=== PATIENT | female | born 1995 | race Caucasian/White ===

== ENCOUNTER 2016-11-24 13:04 | Emergency (ER) | payer OTHER ==
--- NOTE | 2016-11-24 14:39 | ED ---
General Adult HPI - General Chief complaint: Abdominal Pain Stated complaint: Abd Pain Source: patient Mode of arrival: wheelchair Limitations: no limitations - History of Present Illness Initial comments: 21-year-old female presented for evaluation of rectal pain. She states that she has had a hemorrhoid for the last couple years that is reducible and has not been causing her much discomfort during this time. Yesterday she suddenly developed pain in the area and when she reached around to feel the hemorrhoid it felt hard and firm. Upon observation she noted a dark purplish discoloration to it. She tried [id number] creams as well as Tucks pads without improvement. She denies any bleeding or foul discharge. Denies any generalized symptoms of fevers, chills, nausea, vomiting. - Related Data Home Medications Medication Instructions Recorded Confirmed Accutane 40mg 40 mg PO DAILY 11/24/16 11/24/16 Ibuprofen [Motrin] 800 mg PO Q6HR PRN 11/24/16 11/24/16 Previous Rx's Medication Instructions Recorded Acetaminophen-Codeine 300-30mg 2 tab PO Q6H PRN #14 tablet 11/24/16 [Tylenol #3] Ibuprofen [Motrin] 400 mg PO Q6HR PRN #21 tab 11/24/16 Allergies Allergy/AdvReac Type Severity Reaction Status Date / Time No Known Allergies Allergy Verified 11/24/16 13:44 Review of Systems ROS Statement: Those systems with pertinent positive or pertinent negative responses have been documented in the HPI. ROS Other: All systems not noted in ROS Statement are negative. Constitutional: Denies: fever, chills Eyes: Denies: eye pain, vision change ENT: Denies: ear pain, throat pain Respiratory: Denies: cough, dyspnea Cardiovascular: Denies: chest pain, palpitations Endocrine: Denies: fatigue, polydipsia Gastrointestinal: Reports: other (hemorrhoid pain; hardened and discolored). Denies: abdominal pain, nausea, vomiting Genitourinary: Denies: urgency, dysuria Musculoskeletal: Denies: back pain, arthralgia Skin: Denies: rash, lesions Neurological: Denies: headache, weakness Past Medical History Past Medical History: No Reported History Additional Past Medical History / Comment(s): chronic constipation History of Any Multi-Drug Resistant Organisms: None Reported Past Surgical History: No Surgical Hx Reported Past Psychological History: No Psychological Hx Reported Smoking Status: Current every day smoker Past Alcohol Use History: Rare Past Drug Use History: None Reported General Exam Limitations: no limitations General appearance: alert, in no apparent distress Head exam: Present: atraumatic, normocephalic, normal inspection Eye exam: Present: normal appearance, PERRL, EOMI. Absent: scleral icterus, conjunctival injection, periorbital swelling ENT exam: Present: normal exam, mucous membranes moist Neck exam: Present: normal inspection. Absent: tenderness, meningismus, lymphadenopathy Respiratory exam: Present: normal lung sounds bilaterally. Absent: respiratory distress, wheezes, rales, rhonchi, stridor Cardiovascular Exam: Present: regular rate, normal rhythm, normal heart sounds. Absent: systolic murmur, diastolic murmur, rubs, gallop, clicks GI/Abdominal exam: Present: soft, normal bowel sounds. Absent: distended, tenderness, guarding, rebound, rigid Rectal exam: Present: hemorrhoids (extrenal, thrombosed, overlying purplish discoloration) Extremities exam: Present: normal inspection, full ROM, normal capillary refill. Absent: tenderness, pedal edema, joint swelling, calf tenderness Back exam: Present: normal inspection Neurological exam: Present: alert, oriented X3, CN II-XII intact Psychiatric exam: Present: normal affect, normal mood Skin exam: Present: warm, dry, intact, normal color. Absent: rash Course Vital Signs 11/24/16 11/24/16 13:25 16:11 Temperature 99.4 F 99.3 F Pulse Rate 90 76 Respiratory 18 20 Rate Blood Pressure 116/58 112/56 O2 Sat by Pulse 98 99 Oximetry Procedures - Incision & Drainage Consent Obtained: verbal consent, written consent Time Out Performed?: Yes Indication: Thrombosed external hemorrhoid Size (cm): 1 Anesthetic Used: lidocaine 2%, with epi Amount (mLs): 5 I&D Cleaning Method: Betadine Sterile Field Used?: Yes Scalpel Used: #11 Needle Aspiration Performed?: No Irrigation Performed?: No I&D Drainage Obtained: Other (clot) Culture Obtained?: No Complications: bleeding Patient Tolerated Procedure: well Medical Decision Making - Medical Decision Making 21-year-old female presented for evaluation of thrombosed external hemorrhoid. On physical examination it is swollen and tender to palpation and firm. Viscous Lidocaine placed on [address] over the external hemorrhoid and left there for 15 minutes. It was removed and excision of the thrombosed hemorrhoid performed without complications. A Tucks pad was placed over the hemorrhoid and the Dr. Henriquez was called and agreed to see the pt on friday. The patient was informed of this and agreed to make an appointment. She was given return instructions and pain control. The patient acknowledged an understanding of this information and agreed with this plan of care. Disposition Clinical Impression: Thrombosed external hemorrhoid Disposition: HOME SELF-CARE Condition: Stable Instructions: Thrombosed Hemorrhoid (ED) Additional Instructions: The general surgeon Dr. Henriquez has agreed to see you this Friday for follow- up. Please call his office tomorrow morning at the number provided in your discharge paperwork and make this appointment. If he should have any continued bleeding, intractable pain, discolored or smelly discharge from the excision site, or other concerning symptoms please return to this ED immediately if unless you are able to see your PCP first. Prescriptions: Acetaminophen-Codeine 300-30mg [Tylenol #3] 2 tab PO Q6H PRN #14 tablet PRN Reason: Pain Ibuprofen [Motrin] 400 mg PO Q6HR PRN #21 tab PRN Reason: Pain Referrals: Nonstaff,Physician [REFERRING] - 1-2 days Prince Henriquez MD [STAFF PHYSICIAN] - 1-2 days Time of Disposition: 15:45
[2016-11-24] MEDS ORDERED: LIDOCAINE VISCOUS 2% 15 ML CUP MUCOUS MEM ONE (14:45)
[2016-11-24] MEDS ORDERED: WITCH HAZEL 1 EACH MED..PAD TOPICAL STA (14:50)
[2016-11-24 16:13] VITALS: BP 112/56; PULSE 76; RESP 20; TEMP 99.3
[2016-11-25] MEDS ORDERED: WITCH HAZEL 1 EACH MED..PAD TOPICAL SCH (09:00)
== END 2016-11-24 16:11 | disposition home or self-care (01) ==
LOC: EC 13:04
DX: K64.5 Perianal venous thrombosis (principal); F17.200 Nicotine dependence, unspecified, uncomplicated; Z79.899 Other long term (current) drug therapy
CPT/HCPCS: 46083; 99283